=== PATIENT | female | born 1955 | race American Indian/Alaskan Native ===

== ENCOUNTER 2019-07-13 16:04 | Emergency (ER) | payer MEDICARE ==
[2019-07-13 17:09] LABS: Basophils # (Auto) 0.1 K/mm3 (0.0-0.1); Basophils % (Auto) 0.6 % (0.0-1.8); Eosinophils # (Auto) 0.1 K/mm3 (0.0-0.4); Hematocrit 40.7 % (30.3-42.9); Hemoglobin 12.7 gm/dl (10.1-14.3); Lymphocytes # (Auto) 1.7 K/mm3 (1.2-5.4); Lymphocytes % (Auto) 21.5 % (13.4-35.0); Mean Corpuscular HGB Conc 31 % (30-34); Mean Corpuscular Volume 88 fl (79-97); Monocytes # (Auto) 0.6 K/mm3 (0.0-0.8); Monocytes % (Auto) 7.7 % (0.0-7.3); Platelet Count 234 K/mm3 (140-440); Red Blood Count 4.64 M/mm3 (3.65-5.03); Red Cell Distribution Width 15.9 % (13.2-15.2)
--- NOTE | 2019-07-13 17:27 | Event Note ---
ED Screening Note Date of service: 07/13/19 Time: 17:24 ED Screening Note: 63 y/o female comes in for 1 week of diffused abd pain. Has nausea no vomiting. Pain is sharp dull and achy. Feels gases. PMH. Breast Cancer, depression an anxiety. Has a history of tachycardia. This initial assessment/diagnostic orders/clinical plan/treatment(s) is/are subject to change based on patients health status, clinical progression and re- assessment by fellow clinical providers in the ED. Further treatment and workup at subsequent clinical providers discretion. Patient/guardian urged not to elope from the ED as their condition may be serious if not clinically assessed and managed. Initial orders include:
[2019-07-13 17:35] LABS: Alanine Aminotransferase 22 units/L (7-56); BUN/Creatinine Ratio 16; Blood Urea Nitrogen 11 mg/dL (7-17); Calcium 9.7 mg/dL (8.4-10.2); Hemolysis Index 32
[2019-07-14] MEDS ORDERED: DICYCLOMINE 20 MG/2 ML INJ IM ONE (03:27)
[2019-07-14] MEDS ORDERED: FAMOTIDINE 20 MG/2 ML INJ IV ONE (03:27)
[2019-07-14] MEDS ORDERED: ONDANSETRON 4 MG/2 ML INJ IV ONE (03:27)
[2019-07-14] MEDS ORDERED: KETOROLAC 30 MG/1 ML INJ IV ONE (03:27)
[2019-07-14] MEDS ORDERED: MORPHINE 4 MG/1 ML INJ IV ONE (03:27)
--- NOTE | 2019-07-14 04:54 | Cat Scan Report ---
CT OF THE ABDOMEN AND PELVIS WITH INTRAVENOUS CONTRAST INDICATION / CLINICAL INFORMATION: Diffuse abdominal pain. TECHNIQUE: The patient received 100 cc Omnipaque [address] scans at this location are performed using CT dose reduction for ALARA by means of automated exposure control. COMPARISON: None available. FINDINGS: ABDOMEN: The gallbladder is surgically absent. The liver, spleen, bile ducts, pancreas, adrenal gland s, kidneys and bowel demonstrate no significant abnormality. No adenopathy is seen. The right hemidia phragm is moderately elevated. There is minimal right basilar atelectasis. PELVIS: The distal ureters and urinary bladder are normal. The uterus and ovaries are not identified. There are scattered left colonic diverticula without evidence of diverticulitis. A normal appendix i s present. No abnormal mass or fluid collection is seen. I do not identify a hernia. There is mild to moderate lower lumbar spondylosis. IMPRESSION: 1. No acute abnormality. 2. Diverticulosis without CT evidence of diverticulitis. 3. Prior cholecystectomy. 4. Moderate elevation of the right hemidiaphragm with minimal right basilar subsegmental atelectasis. Signer Name: Bret Brand MD Signed: 07/14/2019 4:49 AM Workstation Name: [id number]
[2019-07-14 05:33] LABS: Bilirubin,Urine NEG (Negative); Blood,Urine NEG (Negative); Color,Urine Yellow (Yellow); Mucus,Urine 3+ /HPF; Urobilinogen,Urine < 2.0 mg/dL (<2.0)
--- NOTE | 2019-07-14 06:27 | Emergency Department Report ---
ED Abdominal Pain HPI - General Chief Complaint: Abdominal Pain Stated Complaint: ABD PAIN Time Seen by Provider: 07/13/19 17:23 Source: EMS Mode of arrival: Ambulatory Limitations: No Limitations - History of Present Illness Initial Comments: Patient is a 63-year-old Syrian female who is presenting with some diffuse abdominal discomfort. Patient states that, pains been present for approximately 2 days. Also has some pain in the lower back over the lower back pain is something she still within the past. Patient denies nausea vomiting diarrhea f hector chills or dysuria. Patient states she has been passing large amounts of flatus. MD Complaint: abdominal pain Severity scale (0 -10): 6 Quality: cramping Consistency: constant Worsens With: eating Associated Symptoms: denies: nausea, vomiting, diarrhea, fever - Related Data Previous Rx's Medication Instructions Recorded Last Taken Type Dicyclomine [Bentyl] 20 mg PO QID #10 tablet 07/14/19 Unknown Rx Simethicone [Gas-X Ultra Strength] 180 mg PO BID #10 capsule 07/14/19 Unknown Rx traMADoL [Ultram] 50 mg PO Q6HR PRN #10 tablet 07/14/19 Unknown Rx Allergies Allergy/AdvReac Type Severity Reaction Status Date / Time Penicillins AdvReac Hives Unverified 11/15/13 09:10 ED Review of Systems ROS: Stated complaint: ABD PAIN Other details as noted in HPI Comment: All other systems reviewed and negative ED Past Medical Hx - Social History Smoking Status: Never Smoker Substance Use Type: None - Medications Home Medications: Home Medications Medication Instructions Recorded Confirmed Last Taken Type Dicyclomine [Bentyl] 20 mg PO QID #10 tablet 07/14/19 Unknown Rx Simethicone [Gas-X Ultra Strength] 180 mg PO BID #10 capsule 07/14/19 Unknown Rx traMADoL [Ultram] 50 mg PO Q6HR PRN #10 tablet 07/14/19 Unknown Rx ED Physical Exam - General Limitations: No Limitations General appearance: alert, in no apparent distress - Head Head exam: Present: atraumatic, normocephalic - Eye Eye exam: Present: normal appearance, PERRL, EOMI - ENT ENT exam: Present: mucous membranes moist - Neck Neck exam: Present: normal inspection - Respiratory Respiratory exam: Present: normal lung sounds bilaterally. Absent: respiratory distress, wheezes, rales - Cardiovascular Cardiovascular Exam: Present: regular rate, normal rhythm, normal heart sounds. Absent: systolic murmur, diastolic murmur, rubs, gallop - GI/Abdominal GI/Abdominal exam: Present: soft, normal bowel sounds. Absent: distended, tenderness (although the patient states she has pain all over there is minimal pain on palpation), guarding, rebound, rigid - Extremities Exam Extremities exam: Present: normal inspection - Back Exam Back exam: Present: normal inspection - Neurological Exam Neurological exam: Present: alert, oriented X3 - Psychiatric Psychiatric exam: Present: normal affect, normal mood - Skin Skin exam: Present: warm, dry, intact, normal color. Absent: rash ED Course Vital Signs 07/13/19 07/14/19 07/14/19 17:24 03:30 03:58 Temperature 98.7 F Pulse Rate 130 H 116 H 115 H Respiratory 17 21 31 H Rate Blood Pressure 142/79 142/74 O2 Sat by Pulse 97 97 98 Oximetry 07/14/19 07/14/19 07/14/19 04:01 04:15 04:31 Temperature Pulse Rate 109 H 104 H 107 H Respiratory 38 H 20 43 H Rate Blood Pressure 142/74 142/74 142/74 O2 Sat by Pulse 96 94 92 Oximetry ED Medical Decision Making - Lab Data Result diagrams: 07/13/19 16:38 07/13/19 16:38 Lab Results 07/13/19 07/13/19 07/14/19 Range/Units 16:38 16:38 05:20 WBC 8.1 (4.5-11.0) K/mm3 RBC 4.64 (3.65-5.03) M/mm3 Hgb 12.7 (10.1-14.3) gm/dl Hct 40.7 (30.3-42.9) % MCV 88 (79-97) fl MCH 27 L (28-32) pg MCHC 31 (30-34) % RDW 15.9 H (13.2-15.2) % Plt Count 234 (140-440) K/mm3 Lymph % (Auto) 21.5 (13.4-35.0) % [place] % (Auto) 7.7 H (0.0-7.3) % Eos % (Auto) 1.0 (0.0-4.3) % Baso % (Auto) 0.6 (0.0-1.8) % Lymph # 1.7 (1.2-5.4) K/mm3 [place] # 0.6 (0.0-0.8) K/mm3 Eos # 0.1 (0.0-0.4) K/mm3 Baso # 0.1 (0.0-0.1) K/mm3 Seg Neutrophils % 69.2 (40.0-70.0) % Seg Neutrophils # 5.6 (1.8-7.7) K/mm3 Sodium 144 (137-145) mmol/L Potassium 4.1 (3.6-5.0) mmol/L Chloride 108.1 H (98-107) mmol/L Carbon Dioxide 20 L (22-30) mmol/L Anion Gap 20 mmol/L BUN 11 (7-17) mg/dL Creatinine 0.7 (0.7-1.2) mg/dL Estimated GFR > 60 ml/min BUN/Creatinine Ratio 16 % Glucose 102 H (65-100) mg/dL Calcium 9.7 (8.4-10.2) mg/dL Total Bilirubin 0.40 (0.1-1.2) mg/dL AST 24 (5-40) units/L ALT 22 (7-56) units/L Alkaline Phosphatase 74 (35-129) units/L Total Protein 7.4 (6.3-8.2) g/dL Albumin 4.0 (3.9-5) g/dL Albumin/Globulin Ratio 1.2 % Urine Color Yellow (Yellow) Urine Turbidity Clear (Clear) Urine pH 5.0 (5.0-7.0) Ur Specific [place] > 1.059 H (1.003-1.030) Urine Protein 30 mg/dl (Negative) mg/dL Urine Glucose (UA) Neg (Negative) mg/dL Urine Ketones Neg (Negative) mg/dL Urine Blood Neg (Negative) Urine Nitrite Neg (Negative) Urine Bilirubin Neg (Negative) Urine Urobilinogen < 2.0 (<2.0) mg/dL Ur Leukocyte Esterase Neg (Negative) Urine WBC (Auto) 1.0 (0.0-6.0) /HPF Urine RBC (Auto) 4.0 (0.0-6.0) /HPF U Epithel Cells (Auto) 3.0 (0-13.0) /HPF Urine Mucus 3+ /HPF - Radiology Data Ordering Physician: NURA ANNA MD Date of Service: 07/14/19 Procedure(s): CT abdomen pelvis w con Accession Number(s): [id number] cc: NURA ANNA MD CT OF THE ABDOMEN AND PELVIS WITH INTRAVENOUS CONTRAST INDICATION / CLINICAL INFORMATION: Diffuse abdominal pain. TECHNIQUE: The patient received 100 cc Omnipaque [address] scans at this location are performed using CT dose reduction for ALARA by means of automated exposure control. COMPARISON: None available. FINDINGS: ABDOMEN: The gallbladder is surgically absent. The liver, spleen, bile ducts, pancreas, adrenal glands, kidneys and bowel demonstrate no significant abnormality. No adenopathy is seen. The right hemidiaphragm is moderately elevated. There is minimal right basilar atelectasis. PELVIS: The distal ureters and urinary bladder are normal. The uterus and ovaries are not identified. There are scattered left colonic diverticula without evidence of diverticulitis. A normal appendix is present. No abnormal mass or fluid collection is seen. I do not identify a hernia. There is mild to moderate lower lumbar spondylosis. IMPRESSION: 1. No acute abnormality. 2. Diverticulosis without CT evidence of diverticulitis. 3. Prior cholecystectomy. 4. Moderate elevation of the right hemidiaphragm with minimal right basilar subsegmental atelectasis. Signer Name: Bret Brand MD Signed: 07/14/2019 4:49 AM Workstation Name: [id number] - Medical Decision Making Patient is a 63-year-old female presenting with some diffuse abdominal discomfort. CT shows no evidence of any surgical process. Urinalysis is within normal limits. Patient has no history of atrial fibrillation making ischemic bowel less likely. No inflammatory changes to the bowel is seen suggestive of ischemic bowel. Patient likely with pain secondary to some gas pains and bowel spasm the patient be started on medication for symptomatic relief be discharged home. Critical care attestation.: If time is entered above; I have spent that time in minutes in the direct care of this critically ill patient, excluding procedure time. ED Disposition Clinical Impression: Abdominal gas pain Disposition: DC-01 TO HOME OR SELFCARE Is pt being admited?: No Does the pt Need Aspirin: No Condition: Stable Instructions: Abdominal Pain (ED) Referrals: PREETI RAINEY MD [Primary Care Provider] - 3-5 Days Time of Disposition: 06:28
[2019-07-14 07:23] VITALS: BP 132/78
== END 2019-07-14 07:22 | disposition home or self-care (01) ==
LOC: ED 16:04
DX: R14.1 Gas pain (principal); Z88.0 Allergy status to penicillin
CPT/HCPCS: 36415; 74177; 80053; 81001; 85025; 96372; 96374; 96375; 99284; J0500; J1885; J2270; J2405; Q9967

== ENCOUNTER 2022-01-04 10:18 | Outpatient (CLI) | payer MEDICARE ==
[2022-01-04 11:08] LABS: Mean Corpuscular HGB Conc 30 % (30-34); Mean Corpuscular Volume 79 fl (79-97); Platelet Count 262 K/mm3 (140-440); Red Blood Count 4.88 M/mm3 (3.65-5.03)
[2022-01-04 11:09] LABS: Hematocrit 38.3 % (30.3-42.9); Hemoglobin 11.6 gm/dl (10.1-14.3)
[2022-01-04 11:33] LABS: Alanine Aminotransferase 6 units/L (7-56); Albumin 4.5 g/dL (3.9-5); BUN/Creatinine Ratio 14; Blood Urea Nitrogen 13 mg/dL (7-17); Calcium 9.6 mg/dL (8.4-10.2); Hemolysis Index 0
[2022-01-04 13:05] LABS: C-Reactive Protein < 0.30 mg/dL (0.00-1.30)
== END 2022-01-04 10:19 | disposition home or self-care (01) ==
LOC: LAB 10:18
PROVIDERS: ATTEND Internal Medicine
DX: I13.0 Hypertensive heart and chronic kidney disease with heart failure and stage 1 through stage 4 chronic kidney disease, or unspecified chronic kidney disease (principal); N18.9 Chronic kidney disease, unspecified; Z86.16 Personal history of COVID-19; R73.09 Other abnormal glucose; R10.10 Upper abdominal pain, unspecified; I50.9 Heart failure, unspecified; F31.9 Bipolar disorder, unspecified
CPT/HCPCS: 36415; 80053; 82550; 82728; 83615; 83880; 84484; 85027; 85379; 86140